=== PATIENT | female | born 1990 | race Two or more races ===

== ENCOUNTER 2016-10-22 17:30 | Emergency (ER) | payer MEDICAID, OTHER ==
[~2016-10-22] VITALS: Ht 167.6 cm; Wt 72.6 kg
[~2016-10-22 17:30] MED LIST: BACTRIM DS TAB1 EAC1 ORAL; BENADRYL50 MG ORAL; CLARITIN10 M2 ORAL; CLOTRIMAZOLE VA21 GM VAGIN; DIPHENHYDRAMINE25 M1 ORAL; IBUPROFEN600 MG ORAL; KEFLEX500 MG ORAL; KENALOG 0.1% CR15 GM APPLIC; LIDOCAINE VISCO20 ML PO; NITROFURANTOIN100 M2 ORAL; NKM; NORCO 5-325 TA1 EACH ORAL; PREDNISONE20 MG ORAL
[2016-10-22] MEDS ORDERED: Albuterol ud Inhalation HHN ONE (18:45)
[2016-10-22] MEDS ORDERED: Ipratropium 0.02% Inh Soln 2.5ml UD HHN ONE (18:45)
[2016-10-22 19:28] VITALS: BP 111/75
[2016-10-22] MEDS ORDERED: BENADRYL25 MG ORAL (19:50)
[2016-10-22] MEDS ORDERED: ZITHROMAX250 MG ORAL (19:50)
[2016-10-22 20:05] VITALS: BP 123/72
--- NOTE | 2016-10-22 21:35 | Emergency Room Report ---
History of Present Illness General Chief Complaint: Upper Respiratory Illness Present Illness HPI The patient is a 25-year-old female at 7 weeks gestation presenting for a dry cough which began yesterday. Patient states cough is severe and is causing abdominal pain. Pain is described as an 8 of 10 dull ache which occurs with coughing. Pain is nonradiating. The patient has not tried any medications for this. Patient denies any sick contacts or recent travel. The patient denies other symptoms including nausea, vomiting, fever, chills, wheezing, chest pain, extremity swelling Allergies: Coded Allergies: No Known Allergies (Unverified , 05/11/14) Patient History Past Medical History: see triage record Pertinent Family History: none Now: Yes - 7 weeks Reviewed Nursing Documentation: PMH: Agreed, PSxH: Agreed Nursing Documentation-PMH Hx Asthma: Yes Review of Systems All Other Systems: negative except mentioned in HPI Physical Exam Vital Signs Date Time Temp Pulse Resp B/P Pulse Ox O2 Delivery O2 Flow Rate FiO2 10/22/16 17:57 98.1 97 18 117/79 99 Room Air Sp02 EP Interpretation: reviewed, normal General Appearance: no apparent distress, alert, GCS 15, non-toxic Head: normocephalic, atraumatic Eyes: bilateral eye PERRL, bilateral eye normal inspection ENT: hearing grossly normal, normal pharynx, no angioedema, normal voice, TMs + canals normal, uvula midline Neck: full range of motion, supple/symm/no masses Respiratory: chest non-tender, normal breath sounds, speaking full sentences, wheezing - minimal diffuse Cardiovascular #1: regular rate, rhythm, no edema Gastrointestinal: normal bowel sounds, non tender, soft, non-distended, no guarding, no rebound Genitourinary: normal inspection, no CVA tenderness Musculoskeletal: back normal, gait/station normal, normal range of motion, non- tender Neurologic: alert, oriented x3, responsive, motor strength/tone normal, sensory intact, speech normal Psychiatric: judgement/insight normal, memory normal, mood/affect normal, no suicidal/homicidal ideation Reflexes: 3+ bicep (R), 3+ bicep (L), 3+ tricep (R), 3+ tricep (L), 3+ knee (R) , 3+ knee (L) Skin: normal color, no rash, warm/dry, well hydrated Lymphatic: no adenopathy Medical Decision Making PA Attestation Dr. Garcia is my supervising physician. Patient management was discussed with my supervising physician Diagnostic Impression: Primary Impression: Bronchitis ER Course The patient is a 25-year-old female at 7 weeks gestation presenting for a dry cough Differential diagnosis include but not limited to pharyngitis, sinusitis, AOM, bronchitis, PNA PE: No apparent distress. No TTP over maxillary or frontal sinuses. Lungs + minimal diffuse wheezing. No accessory muscle use. Heart: RRR, no abnormal heart sounds Ears: external auditory canal clear. Non erythematous. Bilat TM intact. Cone of light present bilat. No bulging of TM. No serous fluid seen. No nasal D/C No cervical lymphad No tonsillar exudate. Uvula midline.Oropharynx non erythematous Pt is given a breathing treatment and does feel mildly better. Lung sounds have improved. Due to , the patient is given limited medications including azithromycin and Benadryl for cough. The patient is advised that she needs to followup with [facility] as soon as possible. ER precautions are given Last Vital Signs Date Time Temp Pulse Resp B/P Pulse Ox O2 Delivery O2 Flow Rate FiO2 10/22/16 20:05 98.1 80 18 123/72 100 Room Air Status: improved Disposition: HOME, SELF-CARE Condition: Improved Scripts Azithromycin* (ZITHROMAX*) 250 Mg Tablet 250 MG ORAL DAILY, #6 TAB 0 Refills Take two tables once daily for 1 day, then one tablet once daily for 4 days. Prov: ELISE LAI P.A. 10/22/16 Diphenhydramine Hcl* (BENADRYL*) 25 Mg Capsule 25 MG ORAL Q6H Y for For Cough, #20 CAP Prov: ELISE LAI P.A. 10/22/16 Patient Instructions: Cough, Adult Additional Instructions: I discussed my findings with the patient. All questions and concerns have been answered. Treatment and medication compliance have been addressed. I advised the patient that they need to follow up with PMD in 3-5 days. Return to ED if pain remains or worsens, cough worsens or remains, you notice blood in your sputum, you notice wheezing, you experience a fever, or if needed for any reason. Patient verbalized understanding of discharge instructions. ELISE LAI Oct 22, 2016 21:35
== END 2016-10-22 20:05 | disposition home or self-care (01) ==
LOC: EMR 18:38
DX: O26.891 Other specified pregnancy related conditions, first trimester (principal); Z3A.01 Less than 8 weeks gestation of pregnancy; J45.909 Unspecified asthma, uncomplicated; R10.9 Unspecified abdominal pain
CPT/HCPCS: 94640; 94664; 99284